=== PATIENT | female | born 1975 | race Native Hawaiian/Other Pacific Islander ===

== ENCOUNTER 2016-10-04 10:40 | Emergency (ER) | payer BC, OTHER ==
[~2016-10-04] VITALS: Ht 165.1 cm; Wt 68.0 kg
== END 2016-10-04 11:59 | disposition home or self-care (01) ==
LOC: ED 10:40
DX: B34.9 Viral infection, unspecified (principal); J06.9 Acute upper respiratory infection, unspecified
CPT/HCPCS: 87081; 87804; 87880; 99283